=== PATIENT | female | born 1995 | race African-American/Black ===

== ENCOUNTER 2017-02-08 14:02 | Emergency (ER) | payer SELFPAY ==
[~2017-02-08] VITALS: Ht 160 cm; Wt 61.0 kg
[2017-02-08 14:32] VITALS: BP 114/64
== END 2017-02-08 17:14 | disposition left against medical advice (07) ==
LOC: ER 14:02
DX: R50.9 Fever, unspecified (principal); Z53.21 Procedure and treatment not carried out due to patient leaving prior to being seen by health care provider